=== PATIENT | male | born 1950 | race Caucasian/White ===

== ENCOUNTER → 2016-05-30 09:34 | Outpatient (CLI) | payer MEDICARE, BC ==
[2011-08-12 13:32] VITALS: BMI 33.4
== END | disposition home or self-care (01) ==
LOC: D.US 09:34
DX: R10.11 Right upper quadrant pain (principal)

== ENCOUNTER → 2017-03-24 08:27 | Outpatient (CLI) | payer MEDICARE, BC ==
[2011-08-12 13:32] VITALS: BMI 33.4
== END | disposition home or self-care (01) ==
LOC: D.SP 03-23 10:00 → D.RAD 03-23 10:00 → D.OPS 08:27 → D.RAD 09:00 → D.OPS 09:00
DX: G89.29 Other chronic pain (principal); M25.552 Pain in left hip; Z01.812 Encounter for preprocedural laboratory examination

== ENCOUNTER → 2017-08-12 08:25 | Outpatient (CLI) | payer MEDICARE, BC ==
[~2017-08-12] VITALS: Ht 182.9 cm; Wt 108.0 kg
[2017-08-12 10:19] VITALS: Ht 182.9 cm; Wt 108.0 kg
== END | disposition home or self-care (01) ==
LOC: D.FANS 08:25
DX: E11.65 Type 2 diabetes mellitus with hyperglycemia (principal)

== ENCOUNTER → 2017-08-17 08:28 | Outpatient (CLI) | payer MEDICARE, BC ==
[2017-08-12 10:19] VITALS: BMI 32.3
== END | disposition home or self-care (01) ==
LOC: D.SP 08-14 09:30 → D.RAD 08-14 09:30 → D.SP 08:28
DX: M54.16 Radiculopathy, lumbar region (principal)

== ENCOUNTER 2018-01-21 11:23 | Outpatient (CLI) | payer MEDICARE, BC ==
[2018-01-21] VITALS (8 sets, daily range): BP systolic 115–151; BP diastolic 63–79
[~2018-01-21] VITALS: Ht 182.9 cm; Wt 113.6 kg
--- NOTE | ~2018-01-21 | HEMODYNAMI ---
PATIENT:COURTNEY RODRIGUEZ MEDICAL RECORD: [id number] : 46 LOCATION:[facility] [place] ADMISSION DATE: 01/21/18 Generatedon:01/22/20189:19 Patient name: COURTNEY RODRIGUEZ Patient #: [id number] SSN: : 1950 Date of study: 01/22/2018 Page: Of Hemodynamic Procedure Report Patient Data Patient Demographics Procedure consent was obtained First Name: COURTNEY Gender: Male Last Name: MICHAEL : 1950 Middle Initial: M Age: 68 year(s) Patient #: [id number] Race: Unknown Additional ID: [id number] Contact details [address]: [address] [place] [address] State: [place] City: [place] Zip code: [address] Past Medical History Allergies Allergen Reaction Date Comments Reported Other allergy 01/22/2018 Metformin, Admission Admission Data Admission Date: 01/21/2018 Admission Time: 15:55 Room #: [facility] Lab Results Lab Result Date: 01/22/2018 Lab Result Time: 0:00 Biochemistry Name Units Result Min Max BUN mg/dl 18 --(---*)-- 7 18 Creatinine mg/dl 1.2 --(---*)-- 0.6 1.3 CBC Name Units Result Min Max Hematocrit % 43.3 --(*---)-- 42 54 Hemoglobin g/dl 14.8 --(-*--)-- 13.5 17.5 Procedure Procedure Types Cath Procedure Diagnostic Procedure C [facility] w/Coronaries Sedation Charges Moderate Sedation up to 15 minutes Moderate Sedation up to 30 minutes PCI Procedure Coronary Stent Coronary Stent Initial Peripheral Cath Diagnostic Procedure 4-Vessel Bilateral Carotid Arteriogram Procedure Description Procedure Date Procedure Date: 01/22/2018 Procedure Start Time: 8:44 Procedure End Time: 9:15 Procedure Staff Name Function Wilner Tierney MD Performing Physician Junior Morrison RN Nurse Iain Torres RT Mill Operator Lillie Weinstein RT Monitor Angelica Tripp RT Scrub Procedure Data Cath Procedure Fluoroscopy Diagnostic fluoroscopy Total fluoroscopy Time: 9.7 time: 9.7 min min Diagnostic fluoroscopy Total fluoroscopy dose: dose: 1500 mGy 1500 mGy Contrast Material Contrast Material Type Amount (ml) Isovue 300 164 Entry Location Entry Primary Successful Side Size Upsize Upsize Entry Closure Succes sful Closure Location (Fr) 1 (Fr) 2 (Fr) Remarks Device Remarks Femoral Right 5 Fr 6 Fr Exoseal artery Short Estimated blood loss: 10 ml Diagnostic catheters Device Type Used For End Catheter Placement DIAGNOSTIC JL 4.0 5Fr Procedure catheter ([id number]) DIAGNOSTIC 3DRC 5Fr Procedure catheter ([id number]) DIAGNOSTIC JB3 4Fr Procedure catheter ([id number]) DIAGNOSTIC Pigtail 5Fr Ventriculography catheter ([id number]) Procedure Complications No complications Procedure Medications Medication Administration Route Dosage Oxygen etCO2 Nasal cannula 2 l/min Heparin Flush Bag added to field 2 bags (1000units/500ml NS) 0.9% NaCl I.V. 100 ml/hr Fentanyl I.V. 50 mcg Versed I.V. 1 mg Fentanyl I.V. 50 mcg Versed I.V. 1 mg Heparin Bolus I.V. 4000 units Integrilin (Bolus I.V. 10.2 ml 2mg/ml) Integrilin (Bolus wasted 9.8 ml 2mg/ml) Plavix P.O. 600 mg Fentanyl I.V. 50 mcg Fentanyl I.V. 50 mcg Hemodynamics Rest HGB: 14.8 (g/dl) Heart Rate: 81 (bpm) Pressure Samples Time Site Value (mmHg) Purpose Heart Use Rate(bpm) 8:55 LV 136/13,15 Snapshot 85 8:56 AO 135/76(106) Pullback 87 8:56 LV 135/15,17 Pullback 87 Gradients Valve Time Site 1 Site 2 Mean SEP/DFP Peak To Heart Use (mmHg) (sec/min) Peak Rate (mmHg) (bpm) Aortic 8:56 LV AO 5 7 0 87 135/15,17 135/76(106) Calculations Valve P-P Mean Valve Index Valve Source Name Gradient Area Flow (cm2) Aortic 0 5 0 5 Snapshots Pre Cath Intra NCS Post Cath Vital Signs Time Heart Resp SPO2 etCO2 NIBP (mmHg) Rhythm Pain Sedation Rate (ipm) (%) (mmHg) Status Level (bpm) 8:36:22 80 17 97 0 161/91(128) NSR 0 (11) 10(A) , No pain 8:40:29 81 16 93 3 142/92(123) NSR 0 (11) 10(A) , No pain 8:45:33 79 17 93 37.5 142/88(126) NSR 0 (11) 10(A) , No pain 8:49:42 84 16 94 0 150/93(122) NSR 0 (11) 10(A) , No pain 8:53:58 85 16 96 0 144/85(111) NSR 0 (11) 10(A) , No pain 8:58:12 86 16 95 0 151/81(122) NSR 0 (11) 10(A) , No pain 9:02:26 88 17 96 0 143/83(105) NSR 0 (11) 10(A) , No pain 9:07:33 88 16 96 0 156/99(131) NSR 0 (11) 10(A) , No pain 9:11:50 88 16 96 0 158/98(133) NSR 0 (11) 10(A) , No pain Medications Time Medication Route Dose Verified Delivered Reason Notes Effectiveness by by 8:35:57 Oxygen etCO2 2 Wilner Pacheco Per physician Nasal l/min St Chaitanya Morrison RN cannula 8:37:19 Heparin Flush added 2 Wilner Pacheco used for Bag to bags St Chaitanya Morrison RN procedure (1000units/500ml field MENDOZA NS) 8:37:28 0.9% NaCl I.V. 100 Wilner Pacheco Per physician ml/hr St Chaitanya Morrison RN, MD 8:38:11 Fentanyl I.V. 50 Wilner Pacheco for sedation [facility] Chaitanya Morrison RN, MD 8:38:17 Versed I.V. 1 mg Wilner Pacheco for sedation St Chaitanya Morrison RN, MD 8:45:41 Fentanyl I.V. 50 Wilner Pacheco for sedation mcg [facility] Chaitanya Morrison RN, MD 8:45:44 Versed I.V. 1 mg Wilner Pacheco for sedation St Chaitanya Morrison RN, MD 8:58:47 Heparin Bolus I.V. 4000 Wilner Pacheco for units St Chaitanya graham MD 8:58:58 Integrilin I.V. 10.2 Wilner Pacheco for (Bolus 2mg/ml) ml St Chaitanya Morrison RN antiplatelet MD therapy 9:00:57 Fentanyl I.V. 50 Wilner Pacheco for sedation mcg [facility] Chaitanya Morrison RN, MD 9:03:21 Fentanyl I.V. 50 Wilner Pacheco for sedation mcg [facility] Chaitanya Morrison RN, MD 9:11:19 Integrilin wasted 9.8 Wilner Pacheco for (Bolus 2mg/ml) ml St Chaitanya Morrison RN antiplatelet therapy 9:14:51 Plavix P.O. 600 Wilner Pacheco for mg St Chaitanya Morrison RN antiplatelet MD therapy Procedure Log Time Note 8:01:04 Diagnostic Cath status Elective 8:01:06 Iain Torres RT(R) sent for patient. Start room use. 8:01:14 Time tracking: Regular hours (M-F 7:00 - 5:00) 8:01:18 Plan of Care:Hemodynamics will remain stable., Cardiac rhythm will remain stable., Comfort level will be maintained., Respiratory function will remain adequate., Patient/ family verbilizes understanding of procedure., Procedure tolerated without complication., Recovers from procedure without complications.. 8:29:39 Patient received from PCU to CCL 2 Alert and oriented. Tansferred to table in Supine position. 8:29:41 Warm blankets applied, and ochoa hugger turned on for patient comfort. 8:29:41 Correct patient and procedure confirmed by team. 8:29:42 Signed procedure consent form obtained from patient. 8:29:43 ECG and BP/O2 sat monitors applied to patient. 8:35:15 Vital chart was started 8:35:17 Baseline sample Acquired. 8:35:23 Rhythm: sinus rhythm 8:35:31 Full Disclosure recording started 8:35:38 H&P Date Dictated: 01/21/2018 Within 30 days and on chart.. 8:35:39 Pre-procedure instructions explained to patient. 8:35:39 Pre-op teaching completed and patient verbalized understanding. 8:35:41 Family in patients room. 8:35:42 Patient NPO since Midnight. 8:35:57 Oxygen 2 l/min etCO2 Nasal cannula was administered by Junior Morrison RN; Per physician; 8:36:34 Patient allergic to Other allergyMetformin, 8:36:54 Lab Result : Hemoglobin 14.8 g/dl 8:36:54 Lab Result : Creatinine 1.2 mg/dl 8:36:54 Lab Result : BUN 18 mg/dl 8:36:55 Lab Result : Hematocrit 43.3 % 8:37:00 Is the patient allergic to Iodine/contrast media? No. 8:37:01 Is patient on blood thinner?No 8:37:02 Patient diabetic? Yes. 8:37:03 If diabetic: On Metformin? No 8:37:05 Previous problem with sedation/anesthesia? No ? 8:37:06 Snore? Yes 8:37:07 Sleep apnea? No 8:37:07 Deviated septum? No 8:37:08 Opens mouth fully? Yes 8:37:09 Sticks out tongue? Yes 8:37:10 Airway obstruction? No ? 8:37:12 Dentures? No ? 8:37:17 Modified Power's test Ulnar < 7 seconds 8:37:18 Patient pain scale 0/10 ?. 8:37:19 Heparin Flush Bag (1000units/500ml NS) 2 bags added to field was administered by Junior Morrison RN; used for procedure; 8:37:26 IV patent on arrival in left forearm with 0.9% NaCl at [facility]. 8:37:28 0.9% NaCl 100 ml/hr I.V. was administered by Junior Morrison RN; Per physician; 8:37:33 Lab results completed and on chart. 8:37:35 Right Radial & Right Groin area was prepped with chlora-prep and draped in sterile fashion 8:37:36 Alarms reviewed by R. N. 8:37:36 Sharps counted by scrub and verified by R.N. 8:37:38 Use device set Radial Dx or PCI 8:37:39 ACIST Syringe (24676) opened to sterile field. 8:37:40 Medline Cath Pack ([id number]) opened to sterile field. 8:37:40 Bag Decanter () opened to sterile field. 8:37:41 ACIST Hand Control (07570) opened to sterile field. 8:37:41 ACIST Manifold (18660) opened to sterile field. 8:37:42 Tegaderm 4 x 4 (1626W) opened to sterile field. 8:37:42 MBrace Wrist Support ([id number]) opened to sterile field. 8:37:43 SHEATH 6Fr Prelude Radial ([id number]) opened to sterile field. 8:37:44 DIAGNOSTIC WIRE .035 260cm J wire (550229) opened to sterile field. 8:37:50 Physician arrived 8:37:50 --------ALL STOP TIME OUT------ 8:37:51 Final Timeout: patient, procedure, and site verified with staff and physician. All members of the team are in agreement. 8:37:53 Right Radial & Right Groin site verified by team. 8:37:55 Physical assessment completed. ASA score P 2 - A patient with mild systemic disease as per Wilner Tierney MD. 8:37:57 Sedation plan: IV Moderate Sedation Medication:Versed, Fentanyl 8:38:11 Fentanyl 50 mcg I.V. was administered by Junior Morrison RN; for sedation; 8:38:17 Versed 1 mg I.V. was administered by Junior Morrison RN; for sedation; 8:41:54 Procedure started. 8:44:12 Local anesthetic to right femoral artery with Lidocaine 2% by Wilner Tierney MD.INITIAL ACCESS ONLY 8:44:23 A 5 Fr sheath was inserted into the Right Femoral artery 8:44:44 DIAGNOSTIC Multipack 5Fr catheter set ([id number]) opened to sterile field. 8:45:41 Fentanyl 50 mcg I.V. was administered by Junior Morrison RN; for sedation; 8:45:44 Versed 1 mg I.V. was administered by Junior Morrison RN; for sedation; 8:46:29 A DIAGNOSTIC JL 4.0 5Fr catheter ([id number]) was advanced over the wire and used for Procedure. 8:47:07 A DIAGNOSTIC 3DRC 5Fr catheter ([id number]) was advanced over the wire and used for Procedure. 8:48:12 WHISPER 300cm guide wire ([id number]) opened to sterile field. 8:48:13 SHEATH Prelude 6Fr 0.035 (AFM-2M-98-035) opened to sterile field. 8:48:13 INFLATOR Merit BasixCompak (EK5258) opened to sterile field. 8:48:22 RCA angiography performed. 8:50:31 Catheter removed. 8:50:45 A DIAGNOSTIC JB3 4Fr catheter (683737) was advanced over the wire and used for Procedure. 8:51:12 Right carotid angiography performed. 8:53:50 Left carotid angiography performed. 8:55:01 Catheter removed. 8:55:10 Sheath upsized to a 6 Fr Short. 8:55:50 A DIAGNOSTIC Pigtail 5Fr catheter (778973G) was advanced over the wire and used for Ventriculography. 8:56:26 EF : 50 % 8:57:39 6 Fr XBLAD3.5 guide catheter was inserted over the wire 8:57:48 GUIDE 6FR XBLAD 3.5 catheter ([id number]) opened to sterile field. 8:58:47 Heparin Bolus 4000 units I.V. was administered by Junior Morrison RN; for anticoagulation; 8:58:58 Integrilin (Bolus 2mg/ml) 10.2 ml I.V. was administered by Junior Morrison RN; for antiplatelet therapy; 8:59:37 Whisper wire advanced. 9:00:57 Fentanyl 50 mcg I.V. was administered by Junior Morrison RN; for sedation; 9:02:57 Inflate balloon Inflation number: 1 A EMERGE OTW 3.0 x 15 balloon ([id number]) was prepped and advanced across the Dist LAD, then inflated to 6 ALO for 0:22 (min:sec). 9:03:21 Fentanyl 50 mcg I.V. was administered by Junior Morrison RN; for sedation; 9:04:06 Inflation number: 1 The EMERGE OTW 3.0 x 15 balloon ([id number]) was reinflated across the Mid LAD, to 10 ALO for 0:28 (min:sec). 9:04:48 Balloon removed over the wire. 9:06:30 Place stent Inflation Number: 2 A FAIZA OTW 3.0 x 18 stent ([id number]) was prepped and advanced across the Mid LAD. The stent was deployed at 14 ALO for 0:29 (min:sec). 9:07:13 Wire removed. 9:07:15 Guide catheter removed. 9:07:25 Sheath removed intact; hemostasis achieved with Exoseal to the Right Femoral artery. 9:07:35 EXOSEAL 6Fr (EX600) opened to sterile field. 9:07:40 Procedure ended.(Physican Out) 9:08:05 Fluoroscopy time 09.70 minutes. 9:08:10 Fluoroscopy dose: 1500 mGy 9:08:10 Flurop Dose total: 1500 9:08:14 Contrast amount:Isovue 300 164ml. 9:08:15 Sharps counted by scrub and verified by R.N. 9:08:17 Insertion/operative site no bleeding no hematoma. 9:08:21 Post right femoral artery:stable 9:08:24 Post Procedure Pulses reassessed and unchanged 9:08:27 Post-procedure physical assessment completed. ASA score P 2 - A patient with mild systemic disease as per Wilner Tierney MD. 9:08:30 Post procedure rhythm: unchanged. 9:08:32 Estimated blood loss: 10 ml 9:08:33 Post procedure instruction explained to patient.Patient verbalizes understanding. 9:09:14 Procedure type changed to Cath procedure, Diagnostic procedure, LHC, LHC w/Coronaries, Sedation Charges, Moderate Sedation up to 15 minutes, Moderate Sedation up to 30 minutes, PCI procedure, Coronary Stent, Coronary Stent Initial, Peripheral Cath Diagnostic Procedure, 4-Vessel, Bilateral Carotid Arteriogram 9:09:15 Procedure and supply charges have been captured, reviewed, submitted and are correct. 9:11:19 Integrilin (Bolus 2mg/ml) 9.8 ml wasted was administered by Junior Morrison RN; for antiplatelet therapy; 9:12:04 Procedure Complication : No complications 9:12:07 Vital chart was stopped 9:13:58 See physician's report for complete and final results. 9:14:51 Plavix 600 mg P.O. was administered by Junior Morrison RN; for antiplatelet therapy; 9:15:36 Report given to Pre/Post Procedure Room. 9:15:40 Patient transfered to Pre/Post Procedure Room with Stretcher. 9:15:42 Procedure ended. 9:15:42 Full Disclosure recording stopped 9:15:46 End room use (Document Last) Intervention Summary Intervention Notes Time ActionType Lesion and Equipment Action# Pressure Duration Attributes Used 9:02:57 Inflate Dist LAD EMERGE OTW 1 6 00:22 balloon 3.0 x 15 balloon ([id number]) 9:04:06 Reinflate Mid LAD EMERGE OTW 1 10 00:28 balloon 3.0 x 15 balloon ([id number]) 9:06:30 Place stent Mid LAD FAIZA OTW 3.0 2 14 00:29 x 18 stent ([id number]) Device Usage Item Name Manufacture Quantity Catalog Number Hospital Part Current Minimal Lot# / Charge Number Stock Stock Serial# Code ACIST Syringe Acist 1 01253 186606 503489 610512 20 (75238) Medical Systems Inc Medline Cath Cardinal 1 [id number] 198007 60356 689959 5 Pack Health (MDBO63750) Bag Decanter Microtek 1 2001S 612247 89625 806971 5 (2001S) Medical Inc. ACIST Hand Acist 1 25652 074724 624935 470922 5 Control (31928) Medical Systems Inc ACIST Manifold Acist 1 13638 131604 503612 037447 5 (97291) Medical Systems Inc Tegaderm 4 x 4 3M 1 1626W 420828 593653 690454 5 (1626W) MBrace Wrist Advanced 1 140-0250-00 350319 06593 141779 5 Support Vascular (821744588) Dynamics SHEATH 6Fr Merit 1 [id number] 896441 357576 838796 5 Prelude Radial Medical ([id number]) DIAGNOSTIC WIRE [facility] 1 232269 682705 673992 553124 30 .035 260cm J wire (612942) DIAGNOSTIC Cardinal 1 BQ7489 941060 88203 746070 30 Multipack 5Fr Health catheter set (AL8439) DIAGNOSTIC JL Cardinal 1 529173W 776698 648988 153205 10 4.0 5Fr Health catheter (449332P) DIAGNOSTIC 3DRC Cardinal 1 [id number] 328177 766032 246540 9 5Fr catheter Health (663725K) WHISPER 300cm Arthur 1 [id number] 226414 072373 111325 5 guide wire Vascular (7552939FG) SHEATH Prelude Merit 1 [id number]-[id number] 509458 5725188 776160 5 6Fr 0.035 Medical (XUU-0A-21-035) INFLATOR Merit Merit 1 NI8045 154768 370923 170932 15 BasixSoevolved Medical (TR4751) DIAGNOSTIC JB3 Cardinal 1 532-438 117127 310129 245774 5 4Fr catheter Health (374411) DIAGNOSTIC Cardinal 1 [id number] 327258 964049 664581 5 Pigtail 5Fr Health catheter (496778S) GUIDE 6FR XBLAD Cardinal 1 72061969 985193 767733 724031 10 3.5 catheter Health (90373175) EMERGE OTW 3.0 [place] 1 [id number] 669967 553621 785381 5 12963327 x 15 balloon Scientific ([id number]) FAIZA OTW 3.0 x Medtronic 1 [id number] 505692 3452140 374439 5 [id number] 18 stent ([id number]) EXOSEAL 6Fr Cardinal 1 EX600 163787 066674 699971 10 (EX600) Health Signature Audit [place] Stage Time Signature Unsigned Intra-Procedure 01/22/2018 Lillie Weinstein 9:19:04 AM RT(R) Signatures Monitor : Lillie Weinstein Signature : RT Date : Time : [address] [address]
--- NOTE | ~2018-01-21 | CN ---
PATIENT NAME:COURTNEY RODRIGUEZ MEDICAL RECORD: [id number] : 46 LOCATION:[facility] D.2111 ADMIT DATE: 01/21/18 ACCOUNT: [id number] CONSULTING PHYSICIAN: ELLEN COREAS MD REFERRING PHYSICIAN: ELVIRA MALONE MD DATE OF CONSULTATION: 01/21/2018 HISTORY OF PRESENT ILLNESS: This is a 68-year-old gentleman with a remote history of coronary artery disease, status post intervention multiple years in the past, who has history of intermittent syncope, has been told this is vasovagal without extensive workup. Notes for the last couple of days having intermittent lightheadedness, dizziness, chest pressure and tightness radiating to the arm, near syncope, some visual changes not classic amaurosis, but similar. Finally, his presented him to the ER. We are asked to see him concerning his cardiovascular status. PAST MEDICAL HISTORY: 1. History of hypertension. 2. Hyperlipidemia. 3. Diabetes mellitus. ALLERGIES: DEMEROL, DAYPRO, METFORMIN. SOCIAL HISTORY: . Nonsmoker. He takes care all of his ADLs. No set exercise program. Stays quite active, playing golf, etc. MEDICATIONS: Include atorvastatin 20 mg p.o. every day, Cardura 4 mg p.o. every day, insulin per scale. REVIEW OF SYSTEMS: The patient reports easy bruising but reports no swollen glands. The patient reports no fever, no night sweats, no significant weight gain, no significant weight loss. No significant exercise tolerance. The patient reports no dry eyes, no irritation, no vision change. Patient reports no difficulty hearing and no ear pain. Patient reports no frequent nose bleeds or nose and sinus problems. Patient reports on arm pain on exertion. No shortness of breath while lying down. No history of heart murmur. Patient reports no cough, no wheezing or coughing up blood. Patient reports no abdominal pain, no vomiting. Normal appetite. No diarrhea and not vomiting blood. No nausea and no constipation. Patient reports no incontinence. No difficulty urinating. No hematuria. No increased frequency. Patient reports no muscle aches. No weakness, no arthralgias, no back pain. No swelling of the extremities. Patient reports no abnormal mole, no jaundice, no rashes. Reports no loss of consciousness. No weakness and no numbness. No seizures, dizziness, or headaches. The patient reports no depression, no sleep disturbance, feeling safe in a relationship and no alcohol abuse. Patient reports on fatigue. Reports no runny nose or sinus pressure. No itching, no hives, and no frequent sneezing. PHYSICAL EXAMINATION: GENERAL: Pleasant gentleman in no acute distress. VITAL SIGNS: Blood pressure 120/63, pulse 105 and regular. HEENT: Normocephalic, atraumatic. NECK: Soft. Left carotid bruit noted. HEART: Regular with a II/VII systolic ejection murmur. LUNGS: Good air excursion. CONSULT REPORT [id number] COURTNEY RODRIGUEZ ABDOMEN: Soft, nontender. EXTREMITIES: Pulses are well preserved, 2+ with no edema. NEUROLOGIC: Grossly intact. DIAGNOSTIC DATA: ECG shows nonspecific ST-T changes. IMPRESSION: Transient ischemic attack symptomatology with unstable angina or syncope. We will plan for angiography, intervention based on the above, 4-vessel in the same setting. TRANSINT:[id number] Voice Confirmation ID: [id number] DOCUMENT ID: [id number] ELLEN COREAS MD at 0834 CC: [id number] DICTATION DATE: 01/21/18 1641 DATA CLERK: 01/21/18 1745 ADM IN [facility] [address] [place] [address]
--- NOTE | ~2018-01-21 | OP ---
PATIENT NAME: COURTNEY RODRIGUEZ MEDICAL RECORD: [id number] :46 LOCATION:[facility] ADMISSION DATE:01/21/18 SURGEON: ELLEN COREAS MD DATE OF OPERATION: 01/22/2018 PROCEDURES: Left heart catheterization, selective coronary angiography, plus 4-vessel arteriography, plus PTCA and stenting of the LAD, right femoral artery approach. CATHETERS: A 5-Guamanian sheath, 5/4 left and right Olga, 5/4 pig. The procedure was well tolerated. The patient returned to the mccrary. Sheath was removed. Proceeded to PTCA and stenting. FINDINGS: Left ventriculography in 30-degree AVILA view: Normal wall motion. Normal systolic function. CORONARY ANATOMY: LEFT MAIN: Left main is free of disease. LAD: Right at the takeoff of the first diagonal shows a 90% plus stenosis, AIME flow 3 distally. At the very tip of the LAD, the whale's tail has about 80% stenosis. CIRCUMFLEX: Free of disease. RIGHT CORONARY ARTERY: Has early atherosclerotic disease. No flow obstructive stenosis. FOUR-VESSEL ARTERIOGRAPHY: The right common carotid was selectively engaged. It shows smooth-walled vessel, free of disease. Right internal carotid is a smooth-walled vessel, free of disease. Right external carotid is a smooth-walled vessel, free of disease. Then, we addressed the left carotid system: Left common carotid shows mild luminal irregularities. There is bifurcation and bulb at the takeoff of the external and internal carotids, but no flow obstructive disease. Left internal carotid is free of obstructive disease. Left external carotid is smooth walled, free of obstructive disease. The 5-Guamanian sheath was exchanged for a 6-Guamanian sheath. An EBU 3.5 guide catheter provided good guide catheter support, followed by 300-cm Whisper wire was placed across the tightly occluded LAD down the distal portion of vessel. The predeployment balloon used was a 3.0 x 15 mm Hale. This was taken down to the whale's tail initially to the 80% stenosis and POBA was performed at the apex of the LAD that showed resolution of the 80% stenosis, no significant residual. Next, stent deployed was a 3.0 x 18 mm Resolute drug-eluting stent up to 14 atmospheres for 45 seconds. Final angiography shows excellent resolution of 90% plus stenosis. No significant residual. AIME flow was 3 throughout the procedure. Integrilin was used during the case. Sheath closed with ExoSeal device. Plavix was loaded in the lab. TRANSINT:[id number] Voice Confirmation ID: [id number] DOCUMENT ID: [id number] OPERATIVE REPORT [id number] COURTNEY RODRIGUEZ GREGORY A MD CC: [id number] DICTATION DATE: 01/22/18913 SEWING TEACHER: 01/22/18 1006 ADM IN [place] [id number] [place] [id number]
[2018-01-21] MEDS ORDERED: HUMULIN R100 U/ML SC (12:03)
[2018-01-21] MEDS ORDERED: ZYLOPRIM300 MG PO (12:06)
[2018-01-21] MEDS ORDERED: LIPITOR20 MG PO (12:06)
[2018-01-21] MEDS ORDERED: LANTUS SQ (12:06)
[2018-01-21] MEDS ORDERED: CARDURA4 MG PO (12:07)
[2018-01-21 13:03] LABS: ALBUMIN 3.6 g/dL (3.4-5.0); ALKALINE PHOSPHATASE 90 U/L (46-116); ALT (SGPT) 41 U/L (10-68); BILIRUBIN - TOTAL 0.69 mg/dL (0.2-1.3); CALC OSMOLALITY 279 mosm/kg (275-300); CALCIUM 8.6 mg/dL (8.5-10.1); CARBON DIOXIDE 27.1 mmol/L (21.0-32.0); CHLORIDE - SERUM 104 mmol/L (98-107); CREATININE - SERUM 1.2 mg/dL (0.6-1.3); GLUCOSE 141 mg/dL (74-106); PROTEIN - SERUM 7.3 g/dL (6.4-8.2); SODIUM 138 mmol/L (136-145); UREA NITROGEN 18 mg/dL (7-18); eGFR NON AFRICAN AMERICAN 64 mL/min (90-120)
[2018-01-21 13:13] LABS: BASOPHILS 0.6 % (0-2); EOSINOPHILS 1.9 % (0-7); HEMATOCRIT 43.3 % (42.0-54.0); HEMOGLOBIN 14.8 g/dL (13.5-17.5); IMMATURE GRANULOCYTES 0.1 % (0-5); MCH 31.3 pg (26.0-34.0); MCHC 34.2 g/dL (31.0-37.0); MCV 91.5 fL (80.0-100.0); MEAN PLATELET VOLUME 11.3 fL (7.4-10.4); MONOCYTES 8.3 % (2-11); NEUTROPHILS 62.1 % (40-80); PLATELET COUNT 245 10x3/uL (130-400); RBC 4.73 10x6/uL (4.20-6.10); RDW 13.6 % (11.5-14.5); WBC 8.4 10x3/uL (4.8-10.8)
[2018-01-21 13:14] LABS: CKMB 4.5 U/L (0.0-3.6); CREATINE KINASE 270 UL (21-232); TROPONIN-I < 0.017 ng/mL (0.000-0.060)
[2018-01-21 16:51] LABS: CKMB 4.1 U/L (0.0-3.6); CREATINE KINASE 240 UL (21-232)
[2018-01-21 17:05] LABS: TROPONIN-I < 0.017 ng/mL (0.000-0.060)
[2018-01-21 17:17] LABS: ANION GAP 17.5 mmol/L (8-16); CALCIUM 8.7 mg/dL (8.5-10.1); CARBON DIOXIDE 25.6 mmol/L (21.0-32.0); CREATININE - SERUM 1.2 mg/dL (0.6-1.3); POTASSIUM - SERUM 4.1 mmol/L (3.5-5.1)
[2018-01-21 21:51] LABS: BASOPHILS 0.5 % (0-2); EOSINOPHILS 2.8 % (0-7); HEMATOCRIT 41.4 % (42.0-54.0); HEMOGLOBIN 13.9 g/dL (13.5-17.5); IMMATURE GRANULOCYTES 0.1 % (0-5); LYMPHOCYTES 33.6 % (15-50); MCH 30.4 pg (26.0-34.0); MCHC 33.6 g/dL (31.0-37.0); MCV 90.6 fL (80.0-100.0); MEAN PLATELET VOLUME 11.1 fL (7.4-10.4); PLATELET COUNT 249 10x3/uL (130-400); RBC 4.57 10x6/uL (4.20-6.10); RDW 13.5 % (11.5-14.5); WBC 8.8 10x3/uL (4.8-10.8)
[2018-01-21 22:09] LABS: CKMB 3.1 U/L (0.0-3.6); CREATINE KINASE 196 UL (21-232)
[2018-01-21 22:10] LABS: TROPONIN-I < 0.017 ng/mL (0.000-0.060)
[2018-01-22 04:01] VITALS: BP 145/73; Ht 182.9 cm; Wt 113.6 kg
[2018-01-22 06:28] VITALS: BP 137/70
[2018-01-22 07:15] LABS: CKMB 2.2 U/L (0.0-3.6); CREATINE KINASE 159 UL (21-232); TROPONIN-I < 0.017 ng/mL (0.000-0.060)
[2018-01-22 08:14] VITALS: BP 135/89
[2018-01-22 08:31] VITALS: BP 151/81
[2018-01-22] MEDS ORDERED: ASPIRIN325 MG PO (10:16)
[2018-01-22] MEDS ORDERED: PLAVIX75 MG PO (11:57)
== END 2018-01-22 13:25 | disposition home or self-care (01) ==
LOC: OBSVTIME → D.ER 11:23 → D.OPS 11:23 → EDSTATUS 15:00 → D.EDHOLD 15:55 → D.ER 15:55 → D.EDHOLD 15:55 → OBSVTIME 15:55 → D.EDHOLD 18:16 → D.M2 18:16 → D.ER 19:04 → D.M2 01-22 09:35 → D.CLR 01-22 09:35 → D.OPS 01-22 13:25 → D.CLR 01-22 13:39
PROVIDERS: Family Medicine; Internal Medicine Interventional Cardiology
DX: I25.119 Atherosclerotic heart disease of native coronary artery with unspecified angina pectoris (principal); R55 Syncope and collapse; I10 Essential (primary) hypertension; E78.5 Hyperlipidemia, unspecified; E11.65 Type 2 diabetes mellitus with hyperglycemia
CPT/HCPCS: 36222; 93458; C9600

== ENCOUNTER → 2019-12-23 09:08 | Outpatient (CLI) | payer MEDICARE, BC ==
[2018-01-22 04:01] VITALS: BMI 34.0
[~2019-12-23 09:08] MED LIST: ASPIRIN325 MG PO; CARDURA4 MG PO; HUMULIN R100 U/ML SC; LANTUS SQ; LIPITOR20 MG PO; PLAVIX75 MG PO; ZYLOPRIM300 MG PO
== END | disposition home or self-care (01) ==
LOC: D.HCCECHO 09:08
PROVIDERS: ATTEND Internal Medicine Cardiovascular Disease
DX: I25.10 Atherosclerotic heart disease of native coronary artery without angina pectoris (principal)

== ENCOUNTER → 2020-01-23 07:28 | Outpatient (CLI) | payer MEDICARE, BC ==
[2018-01-22 04:01] VITALS: BMI 34.0
--- NOTE | ~2020-01-23 | HEMODYNAMI ---
PATIENT:COURTNEY RODRIGUEZ MEDICAL RECORD: [id number] : 46 [facility] DATE: 01/23/20 Generatedon:01/23/20208:20 Patient name: COURTNEY RODRIGUEZ Patient #: [id number] SSN: : 1950 Date of study: 01/23/2020 Page: Of Hemodynamic Procedure Report Patient Data Patient Demographics Procedure consent was obtained First Name: COURTNEY Gender: Male Last Name: MICHAEL : 1950 Middle Initial: M Age: 70 year(s) Patient #: [id number] Race: Unknown Additional ID: [id number] Contact details [address]: [address] [place] [address] State: [place] City: [place] Zip code: [address] Past Medical History Allergies Allergen Reaction Date Comments Reported Other allergy 01/22/2018 Metformin, Admission Admission Data Admission Date: 01/23/2020 Admission Time: 7:28 Procedure Procedure Types Cath Procedure Peripheral Cath Diagnostic Procedure Miscellaneous Aspiration/Injection (Joint) Procedure Description Procedure Date Procedure Date: 01/23/2020 Procedure Start Time: 8:01 Procedure Staff Name Function Chaitanya Quiñones MD Performing Physician Héctor Rogers RT Monitor JOANNA LUNDBERG RT Monitor Procedure Data Cath Procedure Fluoroscopy Diagnostic fluoroscopy Total fluoroscopy Time: 2.5 time: 2.5 min min Diagnostic fluoroscopy Total fluoroscopy dose: 35 dose: 35 mGy mGy Hemodynamics Rest Pre Cath Intra NCS Post Cath Procedure Log Time Note 7:21:58 SAFE-T PLUS MYELOGRAM TRAY opened to sterile field. 7:48:29 Héctor Rogers RT (R) (CV) sent for patient. Start room use. 7:48:38 Patient received from Other to IR Alert and oriented. Tansferred to table in Supine position. 7:48:49 Signed procedure consent form obtained from patient. 7:48:50 Correct patient and procedure confirmed by team. 7:48:53 Full Disclosure recording started 7:48:58 7:48:59 Pre-procedure instructions explained to patient. 7:49:00 Pre-op teaching completed and patient verbalized understanding. 7:49:13 ALLERGIES DEMORAL 7:49:20 Is patient on blood thinner?No 7:53:04 Left Hip was prepped with betadine and draped in sterile fashion. 7:53:09 8:00:54 Physician arrived 8:00:55 --------ALL STOP TIME OUT------ 8:00:56 Final Timeout: patient, procedure, and site verified with staff and physician. All members of the team are in agreement. 8:00:59 Left groin site verified by team. 8:01:07 Sedation plan: Local Anesthetic Medication:Lidocaine 8:01:17 Procedure started. 8:01:25 Local anesthetic to Left Hip with Lidocaine 1% by Chaitanya Quiñones MD.INITIAL ACCESS ONLY 8:17:55 Procedure ended.(Physican Out) 8:19:18 Fluoroscopy time 02.50 minutes. 8:19:23 Fluoroscopy dose: 35 mGy 8:19:23 Flurop Dose total: 35 8:19:51 SITE STABLE BANDAIDE APPLIED LT GROIN PT SENT HOME Device Usage Item Name Manufacture Quantity Catalog Hospital Part Current Minimal Lot# / Number Charge Number Stock Stock Serial# Code SAFE-T CareFusion 1 [id number] PLUS MYELOGRAM TRAY Signature Audit [place] Stage Time Signature Unsigned Intra-Procedure 01/23/2020 Héctor 8:20:13 AM [facility] RT (R) (CV) [facility] [address] [place] [address]
== END | disposition home or self-care (01) ==
LOC: D.RAD 07:28
PROVIDERS: ATTEND Orthopaedic Surgery
DX: M16.12 Unilateral primary osteoarthritis, left hip (principal); M25.552 Pain in left hip

== ENCOUNTER → 2020-07-19 08:29 | Outpatient (CLI) | payer MEDICARE, BC ==
[2018-01-22 04:01] VITALS: BMI 34.0
[~2020-07-19 08:29] MED LIST changes: +DITROPAN XL 1010 MG PO; +FLOMAX0.4 MG PO; +HUMALOG 30100 UNITS/; +KLONOPIN0.5 MG PO; +LANTUS INS100 UNITS/ SC; +LISINOPRIL5 MG PO
== END | disposition home or self-care (01) ==
LOC: D.HCCARDIO 08:29
PROVIDERS: ATTEND Internal Medicine Cardiovascular Disease
DX: I25.10 Atherosclerotic heart disease of native coronary artery without angina pectoris (principal)

== ENCOUNTER 2020-07-21 19:02 | Inpatient (IN) | payer MEDICARE, BC ==
[~2020-07-21] VITALS: Ht 182.9 cm; Wt 111.1 kg
--- NOTE | ~2020-07-21 | CN ---
PATIENT NAME:COURTNEY RODRIGUEZ MEDICAL RECORD: [id number] : 46 LOCATION:[facility]CV03 ADMIT DATE: 07/21/20 ACCOUNT: [id number] CONSULTING PHYSICIAN: DIAN PIMENTEL MD REFERRING PHYSICIAN: MEGAN BAXTER MD DATE OF CONSULTATION: 07/22/2020 HISTORY: The patient is a 70-year-old male with history of atherosclerotic heart disease, history of PCI stent, diabetes mellitus, hypertension, hyperlipidemia, who presented to the Emergency Room via EMS after an episode of chest pain while working in the yard. The patient's initial ECG showed ST elevation inferiorly. The patient received nitroglycerin with resolution of his ST segments. The patient presented to the Emergency Room with a repeat ECG with resolution of ST segment and chest pain symptoms resolved. The patient received a heparin bolus and drip, nitroglycerin and aspirin. The patient was admitted to CV ICU for further evaluation and management. PAST MEDICAL HISTORY: Significant for; 1. Acute coronary syndrome -- non-STEMI. 2. Atherosclerotic heart disease. 3. History of PCI/stent. 4. Diabetes mellitus. 5. Hypertension. 6. Hyperlipidemia. MEDICATIONS: 1. Plavix 75 mg daily. 2. Humulin insulin regimen daily. 3. Atorvastatin 20 mg daily. 4. Cardura 4 mg daily. 5. Lantus insulin daily. 6. Lisinopril 5 mg daily. 7. Flomax 0.4 mg daily. 8. Ditropan 10 mg daily. 9. Aspirin 325 daily. MEDICATIONS: Current: Nitroglycerin drip, heparin drip, aspirin 81 daily, and metoprolol 25 mg daily. PHYSICAL EXAMINATION: GENERAL: Pleasant, elderly white male, sitting, in no apparent distress. VITAL SIGNS: Blood pressure 120s over 70, pulse 70s (regular). HEENT: Sclerae are clear; conjunctivae pink. NECK: Supple; no appreciated JVD. HEART: Regular rhythm and rate without appreciated murmurs, gallops, or rubs. LUNGS: Clear. ABDOMEN: Benign. EXTREMITIES: Negative for edema. NEUROLOGIC: Nonfocal. LABORATORY DATA: Hemoglobin and hematocrit 13.9 and 41.7, platelet count is 252. White blood cell count is 8. Sodium 139, potassium 3.8, BUN 17, creatinine is 1.1. Troponin 0.887 (elevated). LDL 57, HDL 30. Troponin 0.727, troponin 0.517. CONSULT REPORT [id number] COURTNEY RODRIGUEZ DIAGNOSTIC DATA: EKG normal sinus rhythm, no acute ST-T wave changes. ASSESSMENT: 1. Acute coronary infarction/iqu-PZ-euoveafvp myocardial infarction. 2. Atherosclerotic heart disease. 3. History of PCI stent. 4. Hypertension. 5. Diabetes mellitus. 6. Hyperlipidemia. 7. Benign prostatic hypertrophy. PLAN: Continue current medical management at this time. The patient is hemodynamically clinically stable. The patient will be scheduled to undergo left heart catheterization in a.m. to assess LV function and coronary angiogram. Further recommendations clinically indicated. Thank you for allowing me to participate in the care of this patient. TRANSINT:[id number] Voice Confirmation ID: [id number] DOCUMENT ID: [id number] DIAN PIMENTEL MD CC: [id number] DICTATION DATE: 07/22/20 1021 HOME AND SCHOOL VISITOR: 07/22/20 1423 ADM IN [facility] [address] [place] [id number]
--- NOTE | ~2020-07-21 | HEMODYNAMI ---
PATIENT:COURTNEY RODRIGUEZ MEDICAL RECORD: [id number] : 46 [id number] AD[facility] DATE: 07/21/20 Generatedon:110:29 Patient name: COURTNEY RODRIGUEZ Patient #: [id number] SSN: [id number] : 1950 Date of study: 07/23/2020 Page: Of Hemodynamic Procedure Report Patient Data Patient Demographics Procedure consent was obtained First Name: COURTNEY Gender: Male Last Name: MICHAEL : 1950 Middle Initial: M Age: 70 year(s) Patient #: [id number] Race: SSN: [id number] Additional ID: [id number] Contact details Address: [address] [place] [address] State: [place] City: [place] Zip code: [address] Past Medical History Allergies Allergen Reaction Date Comments Reported Other allergy 01/22/2018 Metformin, Other allergy 07/23/2020 demerol, metformin, glyburide Admission Admission Data Admission Date: 07/21/2020 Admission Time: 20:28 Arrival Date: 07/21/2020 Arrival Time: 20:28 Room #: D.CV03 Insurance Payor: Medicare Height (in.): 71.65 BSA: 2.31 (m2) Height (cm.): 182 BMI: 33.51 (kg/m2) Weight (lbs.): 244.71 Weight (kg.): 111 Lab Results Lab Result Date: 07/23/2020 Lab Result Time: 0:00 Biochemistry Name Units Result Min Max BUN mg/dl 17 --(---*)-- 7 18 Creatinine mg/dl 1.1 --(--*-)-- 0.6 1.3 eGFR ml/min 70.35613 *-(----)-- 90 120 NONAFRICAN CBC Name Units Result Min Max Hemoglobin g/dl 13.4 -*(----)-- 13.5 17.5 Procedure Procedure Types Cath Procedure Diagnostic Procedure [facility] w/Coronaries Sedation Charges Moderate Sedation 10-24 minutes PCI Procedure Coronary Stent Coronary Stent Initial Hemochron ACT Test Procedure Description Procedure Date Procedure Date: 07/23/2020 Procedure Start Time: 10:07 Procedure End Time: 10:23 Procedure Staff Name Function Wilner Tierney MD Performing Physician Terri Bermeo RT Monitor Angelica Tripp RT Scrub Courtney Juarez RN Nurse Procedure Data Cath Procedure Fluoroscopy Diagnostic fluoroscopy Total fluoroscopy Time: 3.2 time: 3.2 min min Diagnostic fluoroscopy Total fluoroscopy dose: 670 dose: 670 mGy mGy Contrast Material Contrast Material Type Amount (ml) Isovue 370 88 Entry Location Entry Primary Successful Side Size Upsize Upsize Entry Closure Succes sful Closure Location (Fr) 1 (Fr) 2 (Fr) Remarks Device Remarks Femoral Right 5 Fr 6 Fr Exoseal artery Short Estimated blood loss: 10 ml Diagnostic catheters Device Type Used For End Catheter Placement MULTIPACK JL 4.0 5Fr Procedure catheter MULTIPACK 3DRC 5Fr Procedure catheter MULTIPACK Pigtail 5 Fr Procedure catheter Procedure Complications No complications Procedure Medications Medication Administration Route Dosage Oxygen etCO2 Nasal cannula 2 l/min Heparin Flush Bag added to field 2 bags (1000units/500ml NS) Lidocaine 2% added to field 20 0.9% NaCl I.V. 100 ml/hr Fentanyl I.V. 50 mcg Versed I.V. 1 mg Fentanyl I.V. 25 mcg Versed I.V. 0.5 mg Integrilin (Bolus I.V. 10.2 ml 2mg/ml) Plavix P.O. 600 mg Heparin Bolus I.V. 3000 units Hemodynamics Rest BSA: 2.31 (m2) HGB: 13.4 (g/dl) O2 Consumption: Estimated: 268 (ml/min) O2 Consu mption indexed: Estimated:116.02 (ml/min/m) Heart Rate: 72 (bpm) Pressure Samples Time Site Value (mmHg) Purpose Heart Use Rate(bpm) 10:11 LV 77/-2,17 Snapshot 68 Gradients Valve Time Site Site Mean SEP/DFP Peak To Heart Use 1 2 (mmHg) (sec/min) Peak Rate (mmHg) (bpm) Aortic 10:12 LV AO 68 Snapshots Pre Cath Intra NCS Post Cath Vital Signs Time Heart Resp SPO2 etCO2 NIBP (mmHg) Rhythm Pain Sedation Rate (ipm) (%) (mmHg) Status Level (bpm) 9:53:59 73 13 98 151/76(120) NSR 0 (11) 10(A) , No pain 9:58:23 73 12 96 0 138/78(125) NSR 0 (11) 10(A) , No pain 10:02:43 73 9 91 31.5 129/72(109) NSR 0 (11) 10(A) , No pain 10:06:57 71 13 95 35.3 130/75(113) NSR 0 (11) 9(A) , No pain 10:11:13 68 12 97 36 130/69(116) NSR 0 (11) 9(A) , No pain 10:15:27 68 13 98 36.8 129/79(106) NSR 0 (11) 9(A) , No pain 10:19:41 69 10 97 36.8 133/75(114) NSR 0 (11) 9(A) , No pain 10:23:55 66 10 97 36 144/84(127) NSR 0 (11) 9(A) , No pain 10:28:13 67 9 97 33 143/80(122) NSR 0 (11) 9(A) , No pain Medications Time Medication Route Dose Verified Delivered Reason Notes Effectiveness by by 9:53:34 Oxygen etCO2 2 Courtney Courtney for low 02 sats Nasal l/min Ann Juarez, cannula MANSOOR MAX 9:53:42 Heparin Flush added 2 Courtney Courtney used for Bag to bags Ann Juarez procedure (1000units/500ml field RN RN NS) 9:53:52 Lidocaine 2% added 20ml Courtney Wilner for local to vial St Chaitanya Juarez anesthetic field MANSOOR MENDOZA 9:54:06 0.9% NaCl I.V. 100 Courtney Courtney Per physician ml/hr Ann Juarez RN RN 10:00:18 Fentanyl I.V. 50 Courtney Courtney for sedation mcg Ann Juarez RN RN 10:00:22 Versed I.V. 1 mg Courtney Courtney for sedation Ann Juarez RN RN 10:07:26 Fentanyl I.V. 25 Courtney Courtney for sedation mcg Juarez, Juarez, RN RN 10:07:30 Versed I.V. 0.5 Courtney Courtney for sedation mg Ann Juarez RN RN 10:14:08 Integrilin I.V. 10.2 Courtney Courtney for waste d (Bolus 2mg/ml) ml Ann Juarez, anticoagulation 9.2ml MANSOOR RN 10:20:58 Plavix P.O. 600 Courtney Courtney for mg Ann Juarez, antiplatelet RN RN therapy 10:27:35 Heparin Bolus I.V. 3000 Courtney Courtney for verif ied units Ann Juarez, anticoagulation with dr. MANSOOR robles, given due to act being 113 Procedure Log Time Note 9:36:19 Diagnostic Cath Status : Urgent 9:37:19 Procedure Status Urgent Heart Cath (IP). 9:37:21 Courtney Juarez RN sent for patient. Start room use. 9:37:28 Time tracking: Regular hours (M-F 7:00 - 5:00) 9:37:32 Plan of Care:Hemodynamics will remain stable., Cardiac rhythm will remain stable., Comfort level will be maintained., Respiratory function will remain adequate., Patient/ family verbilizes understanding of procedure., Procedure tolerated without complication., Recovers from procedure without complications.. 9:38:04 Informed consent obtained and on chart 9:38:11 Arrival Date: 07/21/2020 8:28:00 PM 9:38:21 Insurance Payor : Medicare 9:38:25 Patient Height : 71.65 inches 9:38:32 Patient Weight : 244.71 lbs 9:39:03 Lab Result : Creatinine 1.1 mg/dl 9:39:03 Lab Result : BUN 17 mg/dl 9:39:03 Lab Result : eGFR NONAFRICAN 70.38933 ml/min 9:39:03 Lab Result : Hemoglobin 13.4 g/dl 9:44:22 Patient received from Pre/Post Procedure Room to CCL 2 Alert and oriented. Tansferred to table in Supine position. 9:44:57 Warm blankets applied, and ochoa hugger turned on for patient comfort. 9:44:57 Correct patient and procedure confirmed by team. 9:44:58 ECG and BP/O2 sat monitors applied to patient. 9:45:09 Full Disclosure recording started 9:52:38 Vital chart was started 9:52:40 Baseline sample Acquired. 9:52:44 Rhythm: sinus rhythm 9:52:47 Pre-procedure instructions explained to patient. 9::47 Pre-op teaching completed and patient verbalized understanding. 9:52:49 Family unavailable. 9:52:50 Patient NPO since Midnight. 9:53:05 Patient allergic to Other allergydemerol, metformin, glyburide 9:53:10 Is the patient allergic to Iodine/contrast media? No. 9:53:12 Was the patient premedicated? Yes 9:53:13 Is patient on blood thinner?No 9:53:15 Patient diabetic? Yes. 9:53:16 If diabetic: On Metformin? No 9:53:18 ----Pre-sedation anethsthesia assessment.---- 9:53:21 Previous problem with sedation/anesthesia? No ? 9:53:22 Snore? Yes 9:53:23 Sleep apnea? No 9:53:24 Deviated septum? No 9:53:25 Opens mouth fully? Yes 9:53:26 Sticks out tongue? Yes 9:53:28 Airway obstruction? No ? 9:53:30 Dentures? No ? 9:53:34 Oxygen 2 l/min etCO2 Nasal cannula was administered by Courtney Juarez RN; for low 02 sats; Verbal order read back and verified. 9:53:35 Modified Power's test Ulnar > 7 seconds. 9:53:37 Patient pain scale 0/10 ?. 9:53:41 IV patent on arrival in left antecubital with 0.9% NaCl at KVO. 9:53:42 Heparin Flush Bag (1000units/500ml NS) 2 bags added to field was administered by Courtney Juarez RN; used for procedure; Verbal order read back and verified. 9:53:45 Lab results completed and on chart. 9:53:49 Stress Test: no; N/A ? 9:53:51 Right groin area was prepped with chlora-prep and draped in sterile fashion 9:53:52 Lidocaine 2% 20ml vial added to field was administered by Wilner Tierney MD; for local anesthetic; Verbal order read back and verified. 9:53:53 Alarms reviewed by R. N. 9:53:53 Sharps counted by scrub and verified by KarliN. 9:53:56 Use device set Femoral Dx 9:53:58 ACIST Syringe (67126) opened to sterile field. 9:53:58 Bag Decanter (2002S) opened to sterile field. 9:53:59 Medline Cath Pack ([id number]) opened to sterile field. 9:54:00 ACIST Hand Control (31401) opened to sterile field. 9:54:01 ACIST Manifold (13163) opened to sterile field. 9:54:01 DIAGNOSTIC Multipack 5Fr catheter set (AL2038) opened to sterile field. 9:54:03 SHEATH 5FR Cisco (JYE499) opened to sterile field. 9:54:03 EMERALD Guide Wire (604-922) opened to sterile field. 9:54:05 Tegaderm 4 x 4 (1626W) opened to sterile field. 9:54:06 0.9% NaCl 100 ml/hr I.V. was administered by Courtney Juarez RN; Per physician; Verbal order read back and verified. 9:55:33 --------ALL STOP TIME OUT------ 9:55:33 Final Timeout: patient, procedure, and site verified with staff and physician. All members of the team are in agreement. 9:55:35 Right groin site verified by team. 9:55:39 Fire Safety Assessment: A--An alcohol-based skin anteseptic being used preoperatively., C--Open oxygen or nitrous oxide is being used., D--An ESU, laser, or fiber-optic light is being used. 9:55:42 Physical assessment completed. ASA score P 2 - A patient with mild systemic disease as per Wilner Tierney MD. 9:55:45 2) 60-89 Mildly reduced kidney function, and other findings (as for stage 1) point to kidney disease. 9:55:47 Maximum allowable contrast dose (3.7 X eGFR X 0.75)194 ml. 9:55:52 Sedation plan: IV Moderate Sedation Medication:Versed, Fentanyl 10:00:18 Fentanyl 50 mcg I.V. was administered by Courtney Juarez RN; for sedation; Verbal order read back and verified. 10:00:22 Versed 1 mg I.V. was administered by Courtney Juarez RN; for sedation; Verbal order read back and verified. 10:06:08 Procedure started. 10:07:26 Fentanyl 25 mcg I.V. was administered by Courtney Juarez RN; for sedation; Verbal order read back and verified. 10:07:30 Versed 0.5 mg I.V. was administered by Courtney Juarez RN; for sedation; Verbal order read back and verified. 10:07:39 Local anesthetic to right femoral artery with Lidocaine 2% by Wilner Tierney MD.INITIAL ACCESS ONLY 10:08:28 A 5 Fr sheath was inserted into the Right Femoral artery 10:08:38 A MULTIPACK JL 4.0 5Fr catheter was advanced over the wire and used for Procedure. 10:09:02 LCA angiography performed. 10:09:04 Injector settings: Ml/sec: 3, Volume: 6, 10:10:08 Catheter removed. 10:10:13 A MULTIPACK 3DRC 5Fr catheter was advanced over the wire and used for Procedure. 10:10:47 Catheter removed. 10:10:53 A MULTIPACK Pigtail 5 Fr catheter was advanced over the wire and used for Procedure. 10:11:21 LV gram done using AVILA 10:11:37 Injector settings: Ml/sec: 5, Volume: 15, 10:11:51 LV hemodynamics recorded. 10:12:01 EF : 40 % 10:12:05 Catheter removed. 10:12:07 Proceeding to intervention. 10:12:12 Use device set WINNETOON PCI 10:12:15 INFLATOR Merit BasixCompak (VQ7584) opened to sterile field. 10:12:18 SHEATH 6FR Cisco (ZXL385) opened to sterile field. 10:12:29 Asahi Minamo 300cm wire opened to sterile field. 10:12:45 Sheath upsized to a 6 Fr Short. 10:13:10 GUIDE 6FR HS I catheter (LA6HSI) opened to sterile field. 10:13:33 6 Fr HS 1 guide catheter was inserted over the wire 10:13:50 Pre PCI Site: Sun'Aq RCA has 95% stenosis. 10:14:08 Integrilin (Bolus 2mg/ml) 10.2 ml I.V. was administered by Courtney Juarez RN; for anticoagulation; wasted 9.2ml Verbal order read back and verified. 10:14:53 ASAHI MINAMO 300 wire advanced. 10:15:33 Wire advanced across lesion. 10:17:41 Inflate balloon Inflation number: 1 A EUPHORA 3.0 x 15 Balloon ([id number]) was prepped and advanced across the Prox RCA 95, then inflated to 14 ALO for 0:10 (min:sec) . 10:17:58 Balloon removed over the wire. 10:19:54 Place stent Inflation Number: 2 A FAIZA RX 3.5 x 15 stent ([id number]) was prepped and advanced across the Prox RCA . The stent was deployed at 14 ALO for 0:24 (min:sec) . 10:20:26 Stent catheter was removed intact over wire. 10:20:26 Wire removed. 10:20:27 Guide catheter removed. 10:20:40 EXOSEAL 6Fr (EX600) opened to sterile field. 10:20:52 Sheath removed intact; hemostasis achieved with Exoseal to the Right Femoral artery. 10:20:57 Fluoroscopy time 03.20 minutes. 10:20:58 Plavix 600 mg P.O. was administered by Courtney Juarez RN; for antiplatelet therapy; Verbal order read back and verified. 10:21:01 Fluoroscopy dose: 670 mGy 10:21:01 Flurop Dose total: 670 10:21:07 Dose Area Product 32731 mGy/cm. 10:21:11 Contrast amount:Isovue 370 88ml. 10:21:13 Procedure ended.(Physican Out) 10:21:38 Maximum allowable dose exceeded? No. 10:21:39 Sharps counted by scrub and verified by R.N. 10:21:43 Post-op/insertion site Right Femoral artery dressed using a 4 x 4 and Tegaderm. 10:21:47 Post right femoral artery:stable, soft, clean and dry 10:21:49 Post Procedure Pulses reassessed and unchanged 10:21:52 Post procedure: right dorsailis pedis pulse 2+ Normal; easily identifiable; not easily obliterated. 10:21:54 Post-procedure physical assessment completed. ASA score P 2 - A patient with mild systemic disease as per Wilner Tierney MD. 10:22:03 Post procedure rhythm: unchanged. 10:22:05 Estimated blood loss: 10 ml 10:22:06 Post procedure instruction explained to patient.Patient verbalizes understanding. 10:22:07 Patient needs reinforcement of post procedure teaching. 10:22:21 Procedure type changed to Cath procedure, Diagnostic procedure, LHC, [facility] w/Coronaries, Sedation Charges, Moderate Sedation 10-24 minutes, PCI procedure, Coronary Stent, Coronary Stent Initial, Hemochron ACT Test 10:22:46 Procedure and supply charges have been captured, reviewed, submitted and are correct. 10:22:50 Procedure Complication : No complications 10::54 [facility] Findings: MVD- PCI performed (see procedure note) 10:22:55 Operative report dictated upon procedure completion. 10:22:55 See physician's report for complete and final results. 10:22:58 Report given to CVICU. 10:23:01 Patient transfered to CVICU with Bed. 10:23:03 Procedure ended. 10:23:03 Full Disclosure recording stopped 10:23:24 ACC-PCI Only Patient was given prescriptions, or instructed by Wilner Tierney MD to start/continue the following medications upon discharge: Plavix 10:23:26 End room use (Document Last) 10:23:36 End room use (Document Last) 10:24:14 End room use (Document Last) 10:27:22 ACT drawn and resulted at 113 seconds. (normal therapeutic range 180-240 seconds). 10:27:35 Heparin Bolus 3000 units I.V. was administered by Courtney Juarez RN; for anticoagulation; verified with dr. robles, given due to act being 113 Verbal order read back and verified. 10:29:06 Vital chart was stopped Intervention Summary Intervention Notes Time ActionType Lesion and Equipment Used Action# Pressure Duration Attributes 10:17:41 Inflate Prox RCA EUPHORA 3.0 x 1 14 00:10 balloon 15 Balloon ([id number]) 10:19:54 Place stent Prox RCA FAIZA RX 3.5 x 2 14 00:24 15 stent ([id number]) Device Usage Item Name Manufacture Quantity Catalog [facility] Lot# / Number Charge Number Stock Stock Serial# Code ACIST Syringe Acist 1 07847 088454 277086 [id number] 20 (27090) Anaqua Inc Bag Decanter Microtek 1 163768 80166 457367 5 () [employer]Ware [employer] Inc. Medline Cath Medline 1 [id number] 519141 53210 782592 5 Pack ([id number]) ACIST Hand Acist 1 16604 324000 023112 326545 5 Control Medical (40981) Systems Inc ACIST Manifold Acist 1 70376 252604 891467 022583 5 (34488) Medical Systems Inc DIAGNOSTIC Cardinal 1 TR6452 649289 35239 918067 30 Multipack 5Fr Health catheter set (FC3792) SHEATH 5FR Terumo 1 [id number] 395326 125272 568321 5 Cisco (YUK089) EMERALD Guide Cardinal 1 502-455 682147 544792 319894 5 Wire (502-455) Glowing Plant Tegaderm 4 x 4 3M 1 1626W 958216 725612 931990 5 (1626W) MULTIPACK JL Cardinal 1 832714 5 4.0 5Fr Glowing Plant catheter MULTIPACK 3DRC Cardinal 1 729292 5 5Fr catheter Health MULTIPACK Cardinal 1 815518 5 Pigtail 5 Fr Health catheter INFLATOR Merit Merit 1 CB4144 855633 177154 033571 15 BasSilicon Republic Medical (CL4208) SHEATH 6FR Terumo 1 AVR531 235411 250314 211086 40 Cisco (TSO005) Asahi Mino Asahi Intecc 1 [id number] 564618 0191480 636129 0 300cm wire GUIDE 6FR HS I Medtronic 1 LA6HSI 833392 55555 145285 1 catheter (LA6HSI) EUPHORA 3.0 x Medtronic 1 [id number] 595204 844452 844890 5 [id number] 15 Balloon ([id number]) FAIZA RX 3.5 x Medtronic 1 [id number] 733244 5203426 749275 5 [id number] 15 stent ([id number]) EXOSEAL 6Fr Cardinal 1 EX600 301098 609939 061344 10 (EX600) Health Signature Audit [place] Stage Time Signature Unsigned Intra-Procedure 07/23/2020 Terri Bermeo 10:23:36 AM RT(R) Intra-Procedure 07/23/2020 Courtney Juarez, 10:24:14 AM RN Intra-Procedure 07/23/2020 Wilner Pandya 10:29:04 AM Chaitanya MENDOZA Signatures Performing Physician : Signature : Wilner Tierney MD Date : Time : Monitor : Terri Young Signature : RT Date : Time : Nurse : Courtney Duncankins, Signature : RN Date : Time : [place] [address] [place] [address]
[~2020-07-21 19:02] MED LIST changes: -DITROPAN XL 1010 MG PO; -FLOMAX0.4 MG PO; -HUMALOG 30100 UNITS/; -KLONOPIN0.5 MG PO; -LANTUS INS100 UNITS/ SC; -LISINOPRIL5 MG PO
[2020-07-21 19:21] LABS: BASOPHILS 0.6 % (0-2); EOSINOPHILS 1.8 % (0-7); HEMATOCRIT 41.5 % (42.0-54.0); HEMOGLOBIN 14.1 g/dL (13.5-17.5); IMMATURE GRANULOCYTES 0.1 % (0-5); LYMPHOCYTE ABS# 2.69 10x3/uL (1.32-3.57); LYMPHOCYTES 30.6 % (15-50); MCH 31.1 pg (26.0-34.0); MCV 91.6 fL (80.0-100.0); MEAN PLATELET VOLUME 10.1 fL (7.4-10.4); MONOCYTES 9.3 % (2-11); NEUTROPHIL ABS# 5.06 10x3/uL (1.78-5.38); NEUTROPHILS 57.6 % (40-80); PLATELET COUNT 246 10x3/uL (130-400); RBC 4.53 10x6/uL (4.20-6.10); RDW 13.8 % (11.5-14.5); WBC 8.8 10x3/uL (4.8-10.8)
[2020-07-21 19:30] LABS: INR 0.97 (0.85-1.17); PROTIME 11.9 SECONDS (11.6-15.0)
[2020-07-21 19:31] LABS: APTT 27.1 SECONDS (22.8-39.4)
[2020-07-21 19:39] LABS: CALC OSMOLALITY 280 mosm/kg (275-300); CALCIUM 8.7 mg/dL (8.5-10.1); CARBON DIOXIDE 24.2 mmol/L (21.0-32.0); CHLORIDE - SERUM 105 mmol/L (98-107); CREATININE - SERUM 1.2 mg/dL (0.6-1.3); POTASSIUM - SERUM 3.8 mmol/L (3.5-5.1); SODIUM 137 mmol/L (136-145); UREA NITROGEN 21 mg/dL (7-18); eGFR NON AFRICAN AMERICAN 63 mL/min (90-120)
[2020-07-21 19:45] VITALS: BP 138/79
[2020-07-21 19:45] LABS: GLUCOSE 167 mg/dL (74-106)
[2020-07-21 20:01] LABS: ALBUMIN 3.3 g/dL (3.4-5.0); ALKALINE PHOSPHATASE 75 U/L (30-120); ALT (SGPT) 32 U/L (10-68); BILIRUBIN - TOTAL 0.67 mg/dL (0.2-1.3); CKMB 3.4 U/L (0.0-3.6); CREATINE KINASE 255 UL (21-232); MAGNESIUM - SERUM 1.8 mg/dL (1.8-2.4); PROTEIN - SERUM 6.5 g/dL (6.4-8.2)
[2020-07-21 20:13] LABS: TROPONIN-I 0.517 ng/mL (0.000-0.060)
[2020-07-21] MEDS ORDERED: FLOMAX0.4 MG PO (22:07)
[2020-07-21] MEDS ORDERED: LISINOPRIL5 MG PO (22:07)
[2020-07-21] MEDS ORDERED: LANTUS INS100 UNITS/ SC (22:07)
[2020-07-21] MEDS ORDERED: KLONOPIN0.5 MG PO (22:08)
[2020-07-21] MEDS ORDERED: LIPITOR20 MG PO (22:08)
[2020-07-21] MEDS ORDERED: DITROPAN XL 1010 MG PO (22:09)
--- NOTE | 2020-07-21 22:15 | NUR ---
PAGESasha MEI TO DISCUSS PATIENT NIGHT MEDS. WAITING FOR RESPONSE.
[2020-07-21 22:24] VITALS: BP 122/76
--- NOTE | 2020-07-21 22:31 | NUR ---
REPORT TO CVICU
[2020-07-21 23:30] VITALS: BP 122/72
--- NOTE | 2020-07-21 23:30 | NUR ---
REC'D PT FROM ED VIA STRETCHER, ASSISTED OUT OF CLOTHES AND INTO HOSP GOWN, ASSISTED TO BED, SLIPPER SOCKS PROVIDED, LEFT A/C PIV WITH HEPARIN INFUSING @ 800 UNITS/HR OR 8CC, MAMARIANO, PT AWAKE, ALERT, ORIENTED X 4, MONITORS ESTABLISHED, BP 139/62, CM-SR @ 77, PT DENIES CHEST PAIN AT THIS TIME, SR UP, BED IN LOWEST POSITION, CALL LIGHT IN REACH.
[2020-07-21] MEDS ORDERED: ZYLOPRIM300 MG PO (23:41)
[2020-07-21] MEDS ORDERED: HUMALOG 30100 UNITS/ (23:45)
[2020-07-22] VITALS (36 sets, daily range): BP systolic 89–140; BP diastolic 36–85; BMI 33.1
--- NOTE | 2020-07-22 00:30 | NUR ---
URINAL EMPTIED OF 100CC CONCENTRATED URINE, PT INFORMED OF NPO STATUS, VERBALIZES UNDERSTANDING, DENIES PAIN OR FURTHER NEEDS, CALL LIGHT IN REACH.
[2020-07-22 01:20] LABS: CKMB 3.8 U/L (0.0-3.6); CREATINE KINASE 221 UL (21-232)
[2020-07-22 01:25] LABS: TROPONIN-I 0.727 ng/mL (0.000-0.060)
--- NOTE | 2020-07-22 03:30 | NUR ---
LAB AT FOR TIME DRAW
[2020-07-22 04:46] LABS: BASOPHILS 0.6 % (0-2); EOSINOPHILS 2.9 % (0-7); HEMATOCRIT 41.7 % (42.0-54.0); HEMOGLOBIN 13.9 g/dL (13.5-17.5); IMMATURE GRANULOCYTES 0.3 % (0-5); LYMPHOCYTE ABS# 2.96 10x3/uL (1.32-3.57); LYMPHOCYTES 37.2 % (15-50); MCH 30.8 pg (26.0-34.0); MCHC 33.3 g/dL (31.0-37.0); MCV 92.3 fL (80.0-100.0); MEAN PLATELET VOLUME 10.8 fL (7.4-10.4); MONOCYTES 10.3 % (2-11); NEUTROPHIL ABS# 3.88 10x3/uL (1.78-5.38); NEUTROPHILS 48.7 % (40-80); PLATELET COUNT 252 10x3/uL (130-400); RBC 4.52 10x6/uL (4.20-6.10); RDW 13.9 % (11.5-14.5)
[2020-07-22 05:23] LABS: ALBUMIN 3.1 g/dL (3.4-5.0); ALKALINE PHOSPHATASE 73 U/L (30-120); ALT (SGPT) 31 U/L (10-68); BILIRUBIN - TOTAL 0.64 mg/dL (0.2-1.3); CALC OSMOLALITY 280 mosm/kg (275-300); CALCIUM 8.6 mg/dL (8.5-10.1); CARBON DIOXIDE 24.4 mmol/L (21.0-32.0); CHLORIDE - SERUM 106 mmol/L (98-107); CHOL - HDL RATIO 3.9 ratio (2.3-4.9); CHOLESTEROL, TOTAL 117 mg/dL (0-200); CKMB 4.4 U/L (0.0-3.6); CREATINE KINASE 206 UL (21-232); CREATININE - SERUM 1.1 mg/dL (0.6-1.3); GLUCOSE 116 mg/dL (74-106); HDL CHOLESTEROL 30 mg/dL (32-96); LDL CHOLESTEROL 57 mg/dL (0-100); LDL-HDL RATIO 1.9 ratio (1.5-3.5); MAGNESIUM - SERUM 1.8 mg/dL (1.8-2.4); PHOSPHOROUS 3.7 mg/dL (2.5-4.9); POTASSIUM - SERUM 3.8 mmol/L (3.5-5.1); PROTEIN - SERUM 6.4 g/dL (6.4-8.2); SODIUM 139 mmol/L (136-145); TRIGLYCERIDE 154 mg/dL (30-200); UREA NITROGEN 17 mg/dL (7-18); eGFR NON AFRICAN AMERICAN 70 mL/min (90-120)
[2020-07-22 05:24] LABS: TROPONIN-I 0.887 ng/mL (0.000-0.060)
--- NOTE | 2020-07-22 08:33 | NUR ---
AWAKE AND ALERT-SR ON MONITOR STATES SMALL AMOUNT OF PRESSURE CTR OF CHEST-NO RADIATION -SR ON MONITOR--L PERIPHERAL -IV INFUSING HEP AT 1000UNITS/H
--- NOTE | 2020-07-22 18:25 | NUR ---
1030-DR KNOTT AT BEDSIDE--SPOKE WITH PT AND AND ADDRESSED CONCERNS AND PLAN OF TREATMENT-NTG GTT STARTED FOR MILD CHEST PRESSURE-GOAL OF 12MCG TEACHING DONE FOR METOPROLOL TARTATE PO - 1100-LAB DRAWN-R ARM-NOTED TAPED SITE FROM PREVIOUS LAB PRICILA REDDENED AND RISEN-STATED ITCHING-TAPE REMOVED AND ADDRESSED ALLERGY- 1200-BENADRL OINTMENT APPLIED TO INNER R ELBOW 1330-STATED PRESSURE RETURNED-12 LEAD DONE -NO CHANGEDS-INCREASED NTG FROM 8MCG TO MAX GOAL OF 12 1345-STATED CHEST PRESSURE [id number] DRAWN 1715-AMBULATED TO RESTROOM-DENIES ANY CHEST DISCOMFORT
[2020-07-23] VITALS (38 sets, daily range): BP systolic 82–161; BP diastolic 38–82; Ht 182.9 cm; Wt 111.1 kg
[2020-07-23 04:44] LABS: BASOPHILS 0.4 % (0-2); EOSINOPHILS 2.4 % (0-7); HEMATOCRIT 39.8 % (42.0-54.0); HEMOGLOBIN 13.4 g/dL (13.5-17.5); IMMATURE GRANULOCYTES 0.2 % (0-5); LYMPHOCYTE ABS# 2.56 10x3/uL (1.32-3.57); LYMPHOCYTES 25.8 % (15-50); MCH 30.9 pg (26.0-34.0); MCHC 33.7 g/dL (31.0-37.0); MCV 91.9 fL (80.0-100.0); MEAN PLATELET VOLUME 10.4 fL (7.4-10.4); MONOCYTES 9.2 % (2-11); NEUTROPHIL ABS# 6.14 10x3/uL (1.78-5.38); PLATELET COUNT 224 10x3/uL (130-400); RBC 4.33 10x6/uL (4.20-6.10); RDW 13.8 % (11.5-14.5); WBC 9.9 10x3/uL (4.8-10.8)
[2020-07-23 05:15] LABS: ANION GAP 12.2 mmol/L (8-16); CALCIUM 8.5 mg/dL (8.5-10.1); CREATININE - SERUM 1.3 mg/dL (0.6-1.3); MAGNESIUM - SERUM 1.9 mg/dL (1.8-2.4); PHOSPHOROUS 3.1 mg/dL (2.5-4.9); POTASSIUM - SERUM 4.2 mmol/L (3.5-5.1)
[2020-07-23 08:33] LABS: CHOL - HDL RATIO 3.6 ratio (2.3-4.9); LDL-HDL RATIO 1.7 ratio (1.5-3.5)
--- NOTE | 2020-07-23 09:45 | NUR ---
PT TO EDGING CATCHER WITH CATH STAFF
--- NOTE | 2020-07-23 11:43 | NUR ---
1040 PT RETURNED FROM ENDOSCOPY TECHNICIAN R GROIN SITE SOFT TO TOUCH, FLAT FOR 4 HOURS AND OK TO DC AFTER [address] MONTEMAYOR , STATED TO NOTIFY THIS AFTERNOON AND HE WILL DO DC, SPOKE WITH HAMIDA IN ENDOSCOPY TECHNICIAN, WILL GET PRESCRIPTION FOR PLAVIX
--- NOTE | 2020-07-23 15:06 | NUR ---
DC INSTRUCTIONS REVIEWED WITH PT, SITE SOFT, NO SIGNS OF BLEEDING, OK TO DC PER DR MONTEMAYOR AND DR COREAS, IV DCD, WRITTEN SCRIPT FOR PLAVIX, DCD [id number]
--- NOTE | 2020-07-23 16:01 | OP ---
PATIENT NAME: COURTNEY RODRIGUEZ MEDICAL RECORD: [id number] :48 LOCATION:[facility] ADMISSION DATE:07/21/20 SURGEON: ELLEN COREAS MD DATE OF OPERATION: 07/23/2020 PROCEDURE: Left heart catheterization, selective coronary angiography, right femoral artery approach. CATHETERS: A 5-[place] sheath, 5/4 left and right Olga. The procedure was well tolerated. The patient returned to the [facility]rary. Sheath removed. ExoSeal device. FINDINGS: Left ventriculography shows mild inferior hypokinesis. Overall, LV function mildly reduced at 40% to 45%. CORONARY ANATOMY: LEFT MAIN: Left main is free of disease. The area of previous stenting is widely patent. No progression of [place] disease. CIRCUMFLEX: Free of disease. RIGHT CORONARY ARTERY: Basically subtotal in its proximal portion with AIME flow 2 distally, obviously infarct related artery. DESCRIPTION OF PROCEDURE: A 5-[place] sheath was exchanged for a 6-[place] sheath. A hockey stick guide catheter provided good guide catheter support followed by 300 cm BMW wire. Pre-deployment balloon was used with a 3.0 x 15 mm [place]. Stent deployed was a 3.5 x 18 mm [place] drug-eluting stent up to 14 atmospheres for 45 seconds. Final angiography shows excellent resolution of 90% plus stenosis. No significant residual. AIME flow was 3 throughout the procedure. Heparin and Integrilin were used during the case. Sheath closed with ExoSeal device. Plavix was loaded in the lab. TRANSINT:[id number] Voice Confirmation ID: [id number] DOCUMENT ID: [id number] ELLEN COREAS MD at 1601 CC: [id number] DICTATION DATE: 07/23/20 1032 LIVE TRUCK TECHNICIAN: 07/23/20 1423 DIS IN 07/23/20 [facility] [address] [place] [address]
== END 2020-07-23 15:09 | disposition home or self-care (01) | DRG 247 ==
LOC: D.ER 19:02 → D.CVICU 20:28
PROVIDERS: Family Medicine; Internal Medicine Interventional Cardiology; ADMIT Emergency Medicine; ATTEND Emergency Medicine
PROC: B2111ZZ Fluoroscopy of Multiple Coronary Arteries using Low Osmolar Contrast (ICD-10-PCS; 2020-07-23)
PROC: 027034Z Dilation of Coronary Artery, One Artery with Drug-eluting Intraluminal Device, Percutaneous Approach (ICD-10-PCS; principal; 2020-07-23 09:00)
PROC: 4A023N7 Measurement of Cardiac Sampling and Pressure, Left Heart, Percutaneous Approach (ICD-10-PCS; 2020-07-23 09:00)
DX: I21.4 Non-ST elevation (NSTEMI) myocardial infarction (principal); I25.110 Atherosclerotic heart disease of native coronary artery with unstable angina pectoris; I10 Essential (primary) hypertension; E87.5 Hyperkalemia; M19.90 Unspecified osteoarthritis, unspecified site; N40.0 Benign prostatic hyperplasia without lower urinary tract symptoms; E11.65 Type 2 diabetes mellitus with hyperglycemia; E78.5 Hyperlipidemia, unspecified; Z79.84 Long term (current) use of oral hypoglycemic drugs

== ENCOUNTER → 2020-09-14 10:58 | Outpatient (CLI) | payer MEDICARE, BC ==
[2020-07-23 10:56] VITALS: BMI 33.2
[~2020-09-14 10:58] MED LIST changes: +DITROPAN XL 1010 MG PO; +FLOMAX0.4 MG PO; +HUMALOG 30100 UNITS/; +KLONOPIN0.5 MG PO; +LANTUS INS100 UNITS/ SC; +LISINOPRIL5 MG PO
== END | disposition home or self-care (01) ==
LOC: D.MRI 10:58
PROVIDERS: ATTEND Nurse Practitioner Family
DX: M54.16 Radiculopathy, lumbar region (principal)